=== PATIENT | female | born 2000 | race Caucasian/White ===

== ENCOUNTER 2023-03-27 09:13 | Outpatient (OUT) | payer OTHER, SELFPAY ==
--- NOTE | 2023-03-27 09:27 | MR_ITS ---
The [address] [address] Patient Name: BAKARI CHEN MRN: [facility]:[id number] date: 2000 Sex: F Assigned Patient Location: MRI Current Patient Location: MRI Accession/Order Number: [id number] Exam Date: 03/27/2023 10:00 Report Date: 03/27/2023 12:45 At the request of: RIGOBERTO BOYD Procedure: MR head/brain wo con EXAM: MR head/brain wo con HISTORY: New Daily Persistent Headache G44.52, Extremity Numbness R20 COMPARISON: None. TECHNIQUE: Axial sagittal T1, axial T2, axial FLAIR, axial GRE FINDINGS: There is no diffusion abnormality. The brain demonstrates normal morphology and signal. There is no mass, mass effect, nor hydrocephalus. The vascular flow voids are patent. The extra-axial structures appear normal. Internal auditory canals and mastoid air cells are patent. The orbits, sella, craniocervical junction are unremarkable. IMPRESSION: Unremarkable unenhanced MRI appearance of the brain Electronically authenticated by: ANH OLMEDO Date: 03/27/2023 12:45
== END 2023-03-27 09:14 ==
LOC: MRI 09:18
PROVIDERS: PCP Family Medicine; Visit Provider Family Medicine
DX: G44.52 New daily persistent headache (NDPH) (principal); R20.0 Anesthesia of skin
CPT/HCPCS: 70551

== ENCOUNTER 2023-05-14 20:02 | Outpatient (REF) | payer OTHER, SELFPAY ==
[2023-05-18 16:12] LABS: Age Gdln ACOG Testing Note (.); IGP, rfx Aptima HPV ASCU Note (.)
== END 2023-05-14 20:03 | disposition home or self-care (01) ==
LOC: LAB 20:02
PROVIDERS: PCP Family Medicine; Visit Provider Physician Assistant
DX: Z01.419 Encounter for gynecological examination (general) (routine) without abnormal findings (principal)
CPT/HCPCS: G0145

== ENCOUNTER 2025-05-07 15:21 | Outpatient (REF) | payer OTHER, SELFPAY ==
--- OUTSIDE RECORDS SUMMARY | 2025-05-07 11:00 | XMS_ITS | Encounter Summary ---
Author Organization [facility] Address [address] [facility] [place] [address] Care Team Providers Care Senior Electrical Project Manager Name Role Phone Kandy Pascual MD Primary Care Provider [phone] Reason for Visit * Reason Comments Well Women Visit Encounter Details Date Type Department Care Team (Late st Contact Info) Description 05/07/2025 11:00 AM EDT Office Visit [facility] [address] [phone] Rajni Rogel PA [address] [place], [facility] Well woman exam with routine gynecological exam Social History Tobacco Use Types Packs/Day Years Used Date Smoking Tobacco: Never Assessed Comments No Sex and Gender Information Value Date Recorded Sex Assigned at Not on file Legal Sex Female 11:47 PM EDT Gender Identity Not on file Sexual Orientation Not on file documented as of this encounter Last Filed Vital Signs Vital Sign Reading Time Taken Comments Blood Pressure 118/74 05/07/2025 11:18 AM EDT Pulse - - Temperature - - Respiratory Rate - - Oxygen Saturation - - Inhaled Oxygen Concentration - - Weight 61.1 kg (134 lb 12 oz) 05/07/2025 11:18 A M EDT Height - - Body Mass Index 23.87 05/14/2023 10:06 AM EDT documented in this encounter Progress Notes * DAWNA Pickard - 05/07/2025 11:00 AM EDT Reason for Appointment: Patient ID: Keisha Echeverria is a 25 y.o. female who presents for Well Women Visit Patient presents today for Annual Exam. MEDICATIONS Current Outpatient Medications Medication Instructions norethindrone-ethinyl estradiol (Aurovela FE 1/20) 1-20 MG-MCG tablet 1 tablet, Oral, Every morning ALLERGIES No Known Allergies PROBLEMS Active Ambulatory Problems Diagnosis Date Noted No Active Ambulatory Problems Resolved Ambulatory Problems Diagnosis Date Noted No Resolved Ambulatory Problems No Additional Past Medical History HISTORY PAST MEDICAL HISTORY SOCIAL HISTORY History reviewed. No pertinent past medical history. Social History Tobacco Use Smoking status: Not on file Smokeless tobacco: Not on file Substance Use Topics Alcohol use: Not on file Drug use: Not on file FAMILY HISTORY No family history on file. SURGICAL HISTORY History reviewed. No pertinent surgical history. REVIEW OF SYSTEMS Review of Systems: Review of Systems Constitutional: Negative. HENT: Negative. Eyes: Negative. Respiratory: Negative. Cardiovascular: Negative. Gastrointestinal: Negative. Genitourinary: Negative. Musculoskeletal: Negative. Skin: Negative. Neurological: Negative. All other systems reviewed and are negative. Hematological: Negative. Endocrine: Negative. Allergic/Immunologic: Negative. OBJECTIVE Objective: Physical Exam Constitutional: Appearance: Normal appearance. She is normal weight. HENT: Head: Normocephalic. Cardiovascular: Rate and Rhythm: Normal rate. Pulses: Normal pulses. Pulmonary: Effort: Pulmonary effort is normal. Breath sounds: Normal breath sounds. Abdominal: Palpations: Abdomen is soft. Musculoskeletal: General: Normal range of motion. Neurological: General: No focal deficit present. Mental Status: She is alert and oriented to person, place, and time. Psychiatric: Mood and Affect: Mood normal. Behavior: Behavior normal. Thought Content: Thought content normal. Judgment: Judgment normal. Vitals and nursing note reviewed. Vitals: Estimated body mass index is 23.87 kg/m?? as calculated from the following: Height as of 05/14/23: 5' 3 . Weight as of this encounter: 134 lb 12 oz. BP: 118/74 Patient's last menstrual period was 04/21/2025 (approximate). ASSESSMENT & PLAN ICD-10-CM 1. Well woman exam with routine gynecological exam Z01.419 Pap Smear Annual Exam: Patient presents today for an annual exam. Patient states she is doing well and has no complaints. Pap was obtained without difficulty. No orders of the defined types were placed in this encounter. Follow Up: Patient is to return in one year for annual unless needed otherwise. Documented by DAWNA Pickard on behalf of: DAWNA Pickard documented in this encounter Plan of Treatment Upcoming Encounters Date Type Department Care Team (Late st Contact Info) Description 05/10/2026 9:00 AM EDT Procedure Visit [facility] [address] [facility] [address] Rajni Rogel PA [address] [place], [place] [id number] Scheduled Orders Name Type Priority Associated Diagnoses Orde r Schedule Pap Smear Pathology and Cytology Routine Well woman exam with routine gynecological exam Ordered: 05/07/2025 documented as of this encounter Visit Diagnoses Diagnosis Well woman exam with routine gynecological exam Routine gynecological examination documented in this encounter Care Teams Senior Electrical Project Manager Relationship Specialty Start Date End Date Kandy Pascual MD [address] [facility] [place] [address] PCP - General Family Medicine 05/14/23 documented as of this encounter
--- OUTSIDE RECORDS SUMMARY | 2025-05-07 15:24 | XMS_ITS | Clinical Summary ---
Author Organization [facility] Address [address] [facility] [place] [address] Care Team Providers Care Ios Architect Name Role Phone Kandy Pascual MD Primary Care Provider [phone] Allergies No known active allergies Medications norethindrone-et hinyl estradiol (Aurovela FE 11/03) 1-20 MG-MCG tabletIndication s: control counseling Take 1 tablet by mouth in the morning. 84 tablet 3 12/29/2024 Active Encounters Date Type Department Care Team Description 05/07/2025 11:00 AM EDT Office Visit [facility] [address] [facility] [address] Rajni Rogel PA Well woman exam with routine gynecological exam 05/07/2025 Bamboo flowsheet [facility] [address] [facility] [address] Rajni Rogel PA from Last 3 Months Social History Tobacco Use Types Packs/Day Years Used Date Smoking Tobacco: Never Assessed Comments No Sex and Gender Information Value Date Recorded Sex Assigned at Not on file Legal Sex Female 11:47 PM EDT Gender Identity Not on file Sexual Orientation Not on file Last Filed Vital Signs Vital Sign Reading Time Taken Comments Blood Pressure 118/74 05/07/2025 11:18 AM EDT Pulse - - Temperature - - Respiratory Rate - - Oxygen Saturation - - Inhaled Oxygen Concentration - - Weight 61.1 kg (134 lb 12 oz) 05/07/2025 11:18 A M EDT Height 160 cm (5' 3 ) 05/14/2023 10:06 AM EDT Body Mass Index 23.87 05/14/2023 10:06 AM EDT Plan of Treatment Upcoming Encounters Date Type Department Care Team (Late st Contact Info) Description 05/10/2026 9:00 AM EDT Procedure Visit [facility] [address] [facility] [address] Rajni Rogel PA [address] [facility] [address] [place], [place] [id number] Insurance 1972 [id number] [id number] [employer] Care Teams Ios Architect Relationship Specialty Start Date End Date Kandy Pascual MD [address] [facility] [place] [address] PCP - General Family Medicine 05/14/23
--- OUTSIDE RECORDS SUMMARY | 2025-05-07 15:25 | XMS_ITS | Encounter Summary ---
Author Organization [facility] Address [address] [facility] [place] [address] Care Team Providers Care Corn Cutter Operator Name Role Phone Kandy Pascual MD Primary Care Provider [phone] Encounter Details Date Type Department Care Team (Late Contact Info) Description 05/07/2025 Bamboo flowsheet [facility] [address] [facility] [place] [phone] Rajni Rogel PA [address] [place] [address] [place] [address] Social History Tobacco Use Types Packs/Day Years Used Date Smoking Tobacco: Never Assessed Comments No Sex and Gender Information Value Date Recorded Sex Assigned at Not on file Legal Sex Female 11:47 PM EDT Gender Identity Not on file Sexual Orientation Not on file documented as of this encounter Plan of Treatment Upcoming Encounters Date Type Department Care Team (Late Contact Info) Description 05/10/2026 9:00 AM EDT Procedure Visit [facility] [address] [facility] [place] [address] Rajni Rogel PA [address] [place] [address] [place], [place] [id number] documented as of this encounter Visit Diagnoses Not on filedocumented in this encounter Care Teams Corn Cutter Operator Relationship Specialty Start Date End Date Kandy Pascual MD [address] [place] [phone] PCP - General Family Medicine 05/14/23 documented as of this encounter
[2025-05-11 17:08] LABS: Age Gdln ACOG Testing Note (.); IGP, rfx Aptima HPV ASCU Note (.)
== END 2025-05-07 15:22 | disposition home or self-care (01) ==
LOC: LAB 15:21
PROVIDERS: PCP Family Medicine; Visit Provider Physician Assistant
DX: Z01.419 Encounter for gynecological examination (general) (routine) without abnormal findings (principal)
CPT/HCPCS: 88175